=== PATIENT | female | born 1990 | race Caucasian/White ===

== ENCOUNTER 2019-01-30 08:10 | Day surgery (SDC) | payer BC ==
[2019-01-26 10:08] VITALS: BMI 25.8
[~2019-01-30 08:10] MED LIST: DEXAMETHASONE SOD PHOSPHATE 10 MG/ML 1 ML VIAL IV ONE; LACTATED RINGERS 1,000 ML IV SCH; LIDOCAINE 1% 20 ML VIAL (10MG/ML) FOR IV START INTRADERMA PRN; MIDAZOLAM 2 MG/2 ML VIAL IV PRN; ONDANSETRON 4 MG/2 ML VIAL IVP ONE; Pre Op ABX Message 1 EACH MISC MISCELLANE ONE; fentaNYL (PF) 50 MCG/ML 2 ML AMP IV PRN
[2019-01-30] MEDS ORDERED: LACTATED RINGERS 1,000 ML IV ONE ×2 (08:30→10:30)
[2019-01-30] MEDS ORDERED: LIDOCAINE 1% INJ 10MG/ML (20 ML MDV) ONE (09:01)
[2019-01-30] MEDS ORDERED: ROCURONIUM BROMIDE 10 MG/ML 10 ML VIAL IV ONE (09:01)
[2019-01-30] MEDS ORDERED: fentaNYL (PF) 50 MCG/ML 2 ML AMP ONE (09:01)
[2019-01-30] MEDS ORDERED: NEOSTIGMINE 1 MG/ML 10 ML VIAL ONE (09:01)
[2019-01-30] MEDS ORDERED: MIDAZOLAM 2 MG/2 ML VIAL ONE (09:01)
[2019-01-30] MEDS ORDERED: GLYCOPYRROLATE 0.2 MG/ML 2 ML VIAL ONE (09:01)
[2019-01-30] MEDS ORDERED: PROPOFOL 10 MG/ML 20 ML VIAL IV ONE (09:01)
[2019-01-30] MEDS ORDERED: BUPIVACAINE (PF) 0.5% 30 ML VIAL SQ ONE ×2 (09:03→09:43)
--- NOTE | 2019-01-30 09:47 | P.OP ---
Date of Procedure: 01/30/19 Preoperative Diagnosis: Undesired Fertility Postoperative Diagnosis: Same Surgeon: Radha Burt Estimated Blood Loss (ml): 3 IV fluids (ml): 500 Urine output (ml): 15 Pathology: none sent Condition: stable Disposition: PACU Indications for Procedure: Undesired fertility Operative Findings: Normal appearing pelvic anatomy including bilateral ovaries, fallopian tubes and the uterus Description of Procedure: After the patient was met in the preoperative holding area and all questions were answered, she was taken to the operating room where anesthetic was administered without incident. She was then positioned, prepped and draped in the dorsal lithotomy position. The bladder was drained for a small amount of urine. Speculum was placed in the vagina and the cervix was grasped anteriorly with a single-tooth tenaculum. Corry uterine manipulator was placed. Attention was then turned to the abdomen. Patient was placed in low lithotomy. The infraumbilical 7 mm skin incision was made. The anterior abdominal wall was grasped and elevated. The Veress needle was inserted without difficulty. Saline drop test indicated intraperitoneal placement. Initial filling pressure with CO2 gas was 3 mm. The abdomen was then insufflated to a total filling pressure of 15 mm. There is Torrie was removed and the 5 mm blade less optical trocar was utilized to introduce the diagnostic laparoscope. Intraperitoneal placement was confirmed. The patient was placed in Trendelenburg. Under direct visualization a 8 mm suprapubic incision was made and the 7 mm port was placed. Bowel was then swept out of the pelvis. Both fallopian tubes and bilateral ovaries were visualized and appeared grossly normal. The Filshie clip shaper machine hand was then introduced. Clips were applied in the mid ampullary region of both the left and right fallopian tubes completely transecting the tubes. Instruments were then removed from the suprapubic port. The suprapubic port was removed and was observed. No intra-abdominal bleeding was appreciated. The abdomen was then desufflated of CO2 gas and the camera and infraumbilical port were removed. The skin was then closed using 4-0 Vicryl suture in a subcuticular fashion. Incisions were infused with local analgesia. Instruments removed from the vagina. There is no active bleeding noted from the tenaculum sites. The patient was awoken from anesthetic without incident and transported recovery area in stable condition. All counts reported to me as correct by the operating room staff.
[2019-01-30 10:09] VITALS: TEMP 96.9
[2019-01-30] MEDS: HYDROmorphone 0.5 MG/0.5 ML SYRINGE IVP PRN ×4 (10:21→11:03)
[2019-01-30] MEDS ORDERED: KETOROLAC 30 MG/ML 1 ML VIAL IVP ONE (11:06)
[2019-01-30] MEDS ORDERED: oxyCODONE-APAP 5-325MG 1 EACH TAB PO ONE (11:45)
[2019-01-30 12:21] VITALS: BP 115/72; PULSE 63; RESP 18
== END 2019-01-30 12:50 | disposition home or self-care (01) ==
LOC: OR 08:10
PROVIDERS: ATTEND Obstetrics & Gynecology
DX: Z30.2 Encounter for sterilization (principal); Z87.891 Personal history of nicotine dependence; Z79.899 Other long term (current) drug therapy; F90.9 Attention-deficit hyperactivity disorder, unspecified type
CPT/HCPCS: 81025; 58671; J2250; J1100; J2710; J2405; J2001; J3010; J1885; J2704; J1170